=== PATIENT | male | born 1990 | race Caucasian/White ===

== ENCOUNTER 2016-10-24 22:18 | Emergency (ER) | payer OTHER, MEDICAID ==
[~2016-10-24] VITALS: Ht 177.8 cm; Wt 104.3 kg
[2016-10-24 22:30] VITALS: BP_SYST 137
[2016-10-24] MEDS ORDERED: NACL 0.9% 1,000 ML IV ONE (22:52)
[2016-10-24] MEDS ORDERED: LORazepam 2 MG/ML VIAL (FOR ER USE) IVP ONE (23:00)
[2016-10-24] MEDS ORDERED: ONDANSETRON HCL 4 MG/2 ML VIAL IVP ONE (23:00)
[2016-10-24 23:26] LABS: BASOPHILS # (AUTO) 0.1 K/uL (0.0-0.2); BASOPHILS % (AUTO) 0.6 % (0.0-2.0); EOSINOPHILS # (AUTO) 0.1 K/uL (0.0-0.4); EOSINOPHILS % (AUTO) 1.3 % (0.0-4.0); HEMATOCRIT 50.2 % (36-54); HEMOGLOBIN 16.7 g/dL (14.0-18.0); LYMPHOCYTES % (AUTO) 23.5 % (20.5-51.5); MEAN CORPUSCULAR HEMOGLOBIN 29 pg (27-31); MEAN CORPUSCULAR HGB CONC 33 % (32-36); MEAN CORPUSCULAR VOLUME 86 fL (79.0-98.0); MONOCYTES # (AUTO) 0.9 K/uL (0.0-1.0); NEUTROPHILS # (AUTO) 5.4 K/uL (1.8-7.7); NEUTROPHILS % (AUTO) 64.6 % (40.0-70.0); PLATELET COUNT (AUTO) 310 K/uL (130-430); RED BLOOD CELL COUNT(AUTO) 5.82 MIL/uL (4.2-6.2); RED CELL DISTRIBUTION WIDTH 12.1 % (9.0-15.0); WHITE BLOOD COUNT (AUTO) 8.5 K/uL (4.8-10.8)
[2016-10-24 23:37] LABS: CALCIUM 11.3 mg/dL (8.4-11.0); CREATININE 1.63 mg/dL (0.55-1.30); POTASSIUM 3.8 mmol/L (3.5-5.1)
[2016-10-24 23:41] LABS: ALBUMIN 5.7 g/dL (3.4-4.8); TOTAL BILIRUBIN 0.8 mg/dL (0.0-1.0); TOTAL PROTEIN, SERUM 9.5 g/dL (6.4-8.3)
[2016-10-25 00:17] VITALS: BP_SYST 134
== END 2016-10-25 00:17 | disposition home or self-care (01) ==
LOC: SED 22:18
DX: R10.11 Right upper quadrant pain (principal); E11.9 Type 2 diabetes mellitus without complications; E86.0 Dehydration; R03.0 Elevated blood-pressure reading, without diagnosis of hypertension
CPT/HCPCS: 36415; 80053; 83690; 85025; 85610; 85730; 96361; 96374; 96375; 99284; J2060; J2405; J7030

== ENCOUNTER 2018-07-10 17:29 | Emergency (ER) | payer OTHER, MEDICAID ==
[~2018-07-10] VITALS: Ht 177.8 cm; Wt 90.7 kg
[~2018-07-10 17:29] MED LIST: BUPR300T55 PO; GLU500 PO; IBUP-1968 PO; LEVO250T2 PO; LIP40 PO
[2018-07-10 17:39] VITALS: BP_SYST 165
--- NOTE | 2018-07-10 17:42 | NUR ---
Patient to ER bed 03 to gown for evaluation. Side rails up.
--- NOTE | 2018-07-10 17:45 | NUR ---
ER Dr. LANGFORD at bedside examining patient.
--- NOTE | 2018-07-10 17:48 | NUR ---
Patient given written and verbal discharge instructions and verbalizes understanding. ER MD discussed with patient the results and treatment provided. Patient in stable condition. ID arm band removed. IV catheter removed intact and dressing applied, no active bleeding. Rx of Cipro and Motrin given. Patient educated on pain management and to followe up with PMD. Pain Scale 0/10. Opportunity for questions provided and answered. Medication side effect fact sheet provided. Patient left the unit in stable condition. Addendum: 07/10/18 at 1826 by JÚNIOR INCORRECT PATIENT
[2018-07-10 18:09] LABS: BASOPHILS % (AUTO) 0.5 % (0.0-2.0); EOSINOPHILS % (AUTO) 1.3 % (0.0-4.0); HEMATOCRIT 46.9 % (36-54); HEMOGLOBIN 16.2 g/dL (14.0-18.0); LYMPHOCYTES % (AUTO) 28.4 % (20.5-51.5); MEAN CORPUSCULAR HEMOGLOBIN 30 pg (27-31); MEAN CORPUSCULAR HGB CONC 34 % (32-36); MEAN CORPUSCULAR VOLUME 88 fL (79.0-98.0); MONOCYTES % (AUTO) 10.3 % (1.7-9.3); NEUTROPHILS % (AUTO) 59.5 % (40.0-70.0); PLATELET COUNT (AUTO) 267 K/uL (130-430); RED BLOOD CELL COUNT(AUTO) 5.36 MIL/uL (4.2-6.2); RED CELL DISTRIBUTION WIDTH 13.6 % (9.0-15.0); WHITE BLOOD COUNT (AUTO) 5.2 K/uL (4.8-10.8)
[2018-07-10 18:10] LABS: EOSINOPHILS # (AUTO) 0.1 K/uL (0.0-0.4); LYMPHOCYTES # (AUTO) 1.5 K/uL (1.0-5.5); MONOCYTES # (AUTO) 0.5 K/uL (0.0-1.0); NEUTROPHILS # (AUTO) 3.1 K/uL (1.8-7.7)
--- NOTE | 2018-07-10 18:13 | NUR ---
PATIENT SITTING IN BED COMPLAINING OF SHARP PAIN 2/10 IN LEFT BIG TOE FOR 3 DAYS. PATIENT SAID HE CRACKED HIS LEFT TOE NAIL ON THE CORNER OF BED SO HE TOOK OFF THE REST OF NAIL. HALF OF NAIL OFF. NO ACTIVE BLEEDING. PATIENT ALERT AND ORIENTED X4. PATIENT NOT COMPLAINING OF SHORTNESS OF BREATH, NAUSEA, OR VOMITING.
[2018-07-10 18:30] LABS: CALCIUM 9.6 mg/dL (8.4-11.0); CREATININE 1.13 mg/dL (0.55-1.30); POTASSIUM 3.5 mmol/L (3.5-5.1)
[2018-07-10 18:35] LABS: ALBUMIN 4.7 g/dL (3.4-4.8); TOTAL BILIRUBIN 0.7 mg/dL (0.0-1.0)
[2018-07-10] MEDS ORDERED: INSULIN REGULAR, HUMAN 10 UNITS/0.1 ML INJ SUBCUT ONE (19:00)
[2018-07-10 19:21] VITALS: BP_SYST 106
--- NOTE | 2018-07-10 19:21 | NUR ---
Patient given written and verbal discharge instructions and verbalizes understanding. ER MD discussed with patient the results and treatment provided. Patient in stable condition. ID arm band removed. IV catheter removed intact and dressing applied, no active bleeding. Rx of TYLENOL, METFORMIN, BACTRIUM, KEFLEX given. Patient educated on pain management and to follow up with PMD. Pain Scale 0/10. Opportunity for questions provided and answered. Medication side effect fact sheet provided.
== END 2018-07-10 19:21 | disposition home or self-care (01) ==
LOC: SED 17:29
DX: L08.89 Other specified local infections of the skin and subcutaneous tissue (principal); M79.675 Pain in left toe(s); E78.00 Pure hypercholesterolemia, unspecified; F41.9 Anxiety disorder, unspecified; F32.9 Major depressive disorder, single episode, unspecified; E11.9 Type 2 diabetes mellitus without complications; Z79.899 Other long term (current) drug therapy
CPT/HCPCS: 36415; 80053; 82962; 85025; 96372; 99283; J1815

== ENCOUNTER 2018-07-23 15:55 | Emergency (ER) | payer OTHER, MEDICAID ==
[~2018-07-23] VITALS: Ht 177.8 cm; Wt 88.5 kg
[2018-07-23 16:05] VITALS: BP_SYST 129
[2018-07-23 19:40] VITALS: BP_SYST 120
== END 2018-07-23 19:40 | disposition home or self-care (01) ==
LOC: SED 15:55
DX: H66.91 Otitis media, unspecified, right ear (principal); J02.9 Acute pharyngitis, unspecified; F32.9 Major depressive disorder, single episode, unspecified; F41.9 Anxiety disorder, unspecified; E78.00 Pure hypercholesterolemia, unspecified; E11.9 Type 2 diabetes mellitus without complications; Z79.899 Other long term (current) drug therapy
CPT/HCPCS: 36415; 86403; 87081; 99283

== ENCOUNTER 2018-11-02 18:21 | Emergency (ER) | payer OTHER, MEDICAID ==
[~2018-11-02] VITALS: Ht 177.8 cm; Wt 90.7 kg
[2018-11-02 18:38] VITALS: BP_SYST 135
--- NOTE | 2018-11-02 19:23 | NUR ---
Patient to ER bed 3 to gown for evaluation. Side rails up. Report given to MARGA PETER.
--- NOTE | 2018-11-02 19:23 | NUR ---
Pt c/o ulcer to left lower inner lip x 1 week. Pt has hx DM and HTN, but states that he is not receiving tx from PMD. Pt states "Dalton is inside of me and I believe he will heal me."
--- NOTE | 2018-11-02 19:30 | NUR ---
Sandy Tobias, CHANNELING MACHINE RUNNER at bedside to assess pt.
[2018-11-02] MEDS ORDERED: NACL 0.9% 1,000 ML IV ONE (20:00)
[2018-11-02] MEDS ORDERED: INSULIN REGULAR, HUMAN 100 UNITS/ML, 10 ML VIAL (humuLIN R) IV ONE (20:00)
--- NOTE | 2018-11-02 20:54 | NUR ---
Lab at bedside.
--- NOTE | 2018-11-02 21:05 | NUR ---
Sandy Tobias, CORPORATE STAFF ACCOUNTANT at bedside to update on POC.
[2018-11-02 21:30] VITALS: BP_SYST 128
--- NOTE | 2018-11-02 21:30 | NUR ---
Patient given written and verbal discharge instructions and verbalizes understanding. ER MD discussed with patient the results and treatment provided. Patient in stable condition. ID arm band removed. IV catheter removed intact and dressing applied, no active bleeding. Rx of Chlorhexedine given. Patient educated on pain management and to follow up with PMD. Pain Scale 2/10. Opportunity for questions provided and answered. Medication side effect fact sheet provided.
== END 2018-11-02 21:30 | disposition home or self-care (01) ==
LOC: SED 18:21
DX: K12.0 Recurrent oral aphthae (principal); E11.9 Type 2 diabetes mellitus without complications; R03.0 Elevated blood-pressure reading, without diagnosis of hypertension; E78.00 Pure hypercholesterolemia, unspecified; F32.9 Major depressive disorder, single episode, unspecified; F41.9 Anxiety disorder, unspecified; Z79.899 Other long term (current) drug therapy
CPT/HCPCS: 36415; 82962; 86592; 96374; 99283; J1815; J7030

== ENCOUNTER 2019-04-11 13:51 | Emergency (ER) | payer OTHER, MEDICAID ==
[~2019-04-11] VITALS: Ht 177.8 cm; Wt 90.7 kg
[2019-04-11 14:04] VITALS: BP_SYST 146
--- NOTE | 2019-04-11 15:43 | NUR ---
Patient to ER bed 07 to gown for evaluation. Side rails up.
--- NOTE | 2019-04-11 15:45 | NUR ---
Pt brought by self,A&Ox4, pt presents to ER with R side upper back pain after he fell from bed, skin pink and warm, cap refill <3, VSS, respirations even and unlabored,will continue to monitor.
--- NOTE | 2019-04-11 15:55 | NUR ---
Dr You at bedside examining patient
--- NOTE | 2019-04-11 15:58 | NUR ---
Patient arrived via POV, AAOx4, and ambulatory with steady gait. Patient presents with c/c of right shoulder pain s/p fall from bed. Patient states tenderness when moving his neck. Patient has no deformity, or bruising noted. Will continue to follow up and monitor.
[2019-04-11] MEDS ORDERED: IBUPROFEN 800 MG TABLET PO ONE (16:00)
[2019-04-11 16:04] VITALS: BP_SYST 140
--- NOTE | 2019-04-11 16:04 | NUR ---
Patient given written and verbal discharge instructions and verbalizes understanding. ER MD discussed with patient the results and treatment provided. Patient in stable condition. ID arm band removed. Rx of Motrin given. Patient educated on pain management and to follow up with PMD. Pain Scale 3/10. Opportunity for questions provided and answered. Medication side effect fact sheet provided.
== END 2019-04-11 16:04 | disposition home or self-care (01) ==
LOC: SED 13:51
DX: M25.511 Pain in right shoulder (principal); M54.6 Pain in thoracic spine; F41.9 Anxiety disorder, unspecified; E78.00 Pure hypercholesterolemia, unspecified; E11.9 Type 2 diabetes mellitus without complications; Z79.899 Other long term (current) drug therapy
CPT/HCPCS: 72080-TC; 73030; 99283

== ENCOUNTER 2019-10-13 12:06 | Emergency (ER) | payer OTHER, MEDICAID ==
[~2019-10-13] VITALS: Ht 177.8 cm; Wt 90.7 kg
[2019-10-13 12:49] VITALS: BP_SYST 123
[2019-10-13 14:55] VITALS: BP_SYST 123
== END 2019-10-13 14:55 | disposition home or self-care (01) ==
LOC: SED 12:06
DX: N43.2 Other hydrocele (principal); F41.9 Anxiety disorder, unspecified; E78.00 Pure hypercholesterolemia, unspecified; E11.9 Type 2 diabetes mellitus without complications; Z79.899 Other long term (current) drug therapy
CPT/HCPCS: 76870-TC; 99284

== ENCOUNTER 2021-12-01 16:05 | Emergency (ER) | payer OTHER, MEDICAID ==
[~2021-12-01] VITALS: Ht 177.8 cm; Wt 95.3 kg
[2021-12-01 16:39] VITALS: BP_SYST 125
--- NOTE | 2021-12-01 16:49 | NUR ---
Patient triaged and placed in waiting room. VSS and patient appears in no acute distress at this time. Accompanied by SELF, awaiting available bed, and MD notified of need for MSE.
--- NOTE | 2021-12-01 18:45 | NUR ---
PT BROUGHT TO BED 8, REPORT GIVEN TO ROME HYATT.
--- NOTE | 2021-12-01 18:50 | NUR ---
Pt presents to the ER BIB self with CC abdominal pain. Pt states pain level3/10, with flareups to 5. Abdominal region pain is described as all over abdomen with pinching. Pt notes last BM this morning was small yellow and mushy. VSS, NAD. PMHx constipation and hermmorhoids
[2021-12-01] MEDS ORDERED: SIME125T69 PO (19:12)
[2021-12-01] MEDS ORDERED: FAMO40TA71 PO (19:12)
[2021-12-01] MEDS ORDERED: MAG HYDROX/AL HYDROX/SIMETH 30 ML, LIDOCAINE VISCOUS 2% 15ML (PO) 15 ML, DICYCLOMINE HC... PO ONE ×3 (19:15)
[2021-12-01 20:04] VITALS: BP_SYST 113
--- NOTE | 2021-12-01 20:05 | NUR ---
LINDSEY RN PT STABLE FOR D/C'D TO HOME. PT VERBALIZES UNDERSTANDING OF AFTERCARE AND [employer] FOUNDATION COORDINATOR. TO LOBBY AMB WITH ALL PAPERWORK IN HAND. NO C/O PAIN OR DISCOMFORT AT THIS TIME
--- NOTE | 2021-12-01 23:14 | NUR ---
Patient given written and verbal discharge instructions and verbalizes understanding. ER MD discussed with patient the results and treatment provided. Patient in stable condition. ID arm band removed. Patient educated on pain management and to follow up with PMD. Opportunity for questions provided and answered. Medication side effect fact sheet provided.
== END 2021-12-01 20:04 | disposition home or self-care (01) ==
LOC: SED 16:05
DX: K29.70 Gastritis, unspecified, without bleeding (principal); K59.00 Constipation, unspecified; R10.13 Epigastric pain; E11.9 Type 2 diabetes mellitus without complications; Z79.899 Other long term (current) drug therapy
CPT/HCPCS: 99283; J2001; 99282